=== PATIENT | male | born 1950 | race Caucasian/White ===

== ENCOUNTER 2020-09-06 15:13 | Inpatient (IN) | payer BC, MEDICARE ==
[2020-09-06] VITALS (33 sets, daily range): BP systolic 102–130; BP diastolic 60–75
[~2020-09-06] VITALS: Ht 182.9 cm; Wt 81.2 kg
[~2020-09-06 15:13] MED LIST: AMLO10TA4; ASCO-316; ASPI-518; ATEN50TA; CA C1TAB95; CYAN1LOZ; ERGO400C PO; FOSI10TA4; GARL1CAP12; GINK60TA7; INSULIN; LACT1TAB14; LECI518C; LIRA0.6P; MULT-783; OMEG300C3 PO; RANI-645; SERT-112; TESTOSTERONE PATCH; VITA-290; VITA400C24
[2020-09-06] MEDS ORDERED: LEVETIRACETAM 500 MG in SODIUM CHLORIDE 0.9% 100 ML IV SCH (15:45)
[2020-09-06] MEDS ORDERED: PROPOFOL 10MG/ML 100ML 100 ML IV PRN (16:15)
[2020-09-06] MEDS ORDERED: FENTANYL CITRATE/PF 2,500 MCG in SODIUM CHLORIDE 0.9% 200 ML IV PRN (16:15)
[2020-09-06] MEDS ORDERED: DEXTROSE 50% WATER 50ML SYRINGE IV PRN (16:15)
[2020-09-06] MEDS ORDERED: NICARDIPINE 100 MG in SODIUM CHLORIDE 0.9% 60 ML IV PRN (16:15)
[2020-09-06 16:23] LABS: BG BASE EXCESS 5.6 mmol/L (-2.0-2.0); BG CARBOXYHEMOGLOBIN 0.2 % (0.5-1.5); BG DEOXYHEMOGLOBIN 0.7 % (0.0-5.0); BG FRACTION INSPIRED OXYGEN 100; BG HCO3 ACT 29.2 mmol/L (22.0-26.0); BG METHEMOGLOBIN 0.2 % (0.0-1.5); BG OXYGEN SATURATION 99.3 % (92.0-98.5); BG OXYHEMOGLOBIN 98.9 % (94.0-97.0); BG PCO2 38.9 mmHg (35.0-45.0); BG PH 7.493 (7.350-7.450); BG PO2 555.5 mmHg (75.0-100.0); BG SAMPLE SITE LEFT RADIAL; BG TOTAL HEMOGLOBIN 11.8 g/dL (12.0-18.0); BG VENT MODE VENT - AC
[2020-09-06] MEDS: DEXT 5%/LACTATED RINGERS 1,000 ML IV SCH (16:38)
[2020-09-06] MEDS: BLOOD SUGAR DIAGNOSTIC STRIP TEST SCH ×2 (17:13→20:19)
[2020-09-06] MEDS: INSULIN LISPRO 100 UNITS/ML SUBCUT SCH ×2 (17:16→21:25)
[2020-09-06 18:57] LABS: BASOPHILS % 0.3 % (0.0-2.0); EOSINOPHILS % 0.4 % (0.0-5.0); HEMATOCRIT. 31.3 % (42.0-52.0); LYMPHOCYTES % 16.4 % (20.0-50.0); MEAN CORPUSCULAR HEMOGLOBIN 30.9 pg (28.0-32.0); MEAN CORPUSCULAR VOLUME 87.6 fL (80.0-94.0); MEAN PLATELET VOLUME 7.8 fl (7.4-10.4); NEUTROPHILS % 75.9 % (40.0-76.0); PLATELET 239 x1000/uL (130-400); RED BLOOD CELL COUNT 3.58 mill/uL (4.7-6.1); RED CELL DISTRIBUTION WIDTH 14.9 % (11.6-14.6)
[2020-09-06 19:03] LABS: CHLORIDE 103 mEq/L (98-107)
[2020-09-06] MEDS: LEVETIRACETAM 500MG PREMIX 100 ML IV SCH (20:19)
[2020-09-06] MEDS: IPRATROPIUM/ALBUTEROL 0.5-3(2.5)MG/3ML NEB HHN SCH (20:31)
[2020-09-07] VITALS (90 sets, daily range): BP systolic 93–157; BP diastolic 48–132
[2020-09-07] MEDS: LEVOTHYROXINE SODIUM 50MCG TABLET PO SCH ×2 (05:45→05:58)
[2020-09-07] MEDS: BLOOD SUGAR DIAGNOSTIC STRIP TEST SCH ×4 (05:45→20:16)
[2020-09-07] MEDS: INSULIN LISPRO 100 UNITS/ML SUBCUT SCH ×4 (06:39→21:22)
[2020-09-07] MEDS: IPRATROPIUM/ALBUTEROL 0.5-3(2.5)MG/3ML NEB HHN SCH ×3 (08:53→20:52)
[2020-09-07] MEDS: PANTOPRAZOLE SODIUM 40 MG/VIAL IV SCH (09:13)
[2020-09-07] MEDS: LEVETIRACETAM 500MG PREMIX 100 ML IV SCH ×2 (09:13→20:04)
[2020-09-07] MEDS: AMLODIPINE 5MG TABLET PO SCH (09:14)
[2020-09-07] MEDS: ATORVASTATIN CALCIUM 40MG TABLET PO SCH (09:14)
[2020-09-07] MEDS: SERTRALINE HCL 100MG TABLET PO SCH (09:14)
[2020-09-07] MEDS: DEXT 5%/LACTATED RINGERS 1,000 ML IV SCH (09:27)
[2020-09-07 11:28] LABS: INR 1.1; PROTHROMBIN TIME 11.9 sec (9.6-11.0)
[2020-09-07] MEDS: CEFTRIAXONE 1,000 MG in DEXTROSE 5% WATER 50 ML IV SCH (13:14)
[2020-09-07 19:44] LABS: CLARITY URINE TURBID (CLEAR); COLOR URINE DK YELLOW (YELLOW); KETONES URINE 1+ (NEGATIVE); LEUKOCYTE ESTERASE URINE 3+ (NEGATIVE); NITRITE URINE POSITIVE (NEGATIVE); OCCULT BLOOD URINE 2+ (NEGATIVE); PH URINE 5.5 (4.5-8.0); PROTEIN URINE 1+ (NEGATIVE); SPECIFIC GRAVITY URINE 1.027 (1.005-1.030); UROBILINOGEN URINE 0.2 E.U./dL (0.2-1.0)
[2020-09-07] MEDS: ONDANSETRON HCL 4MG/2ML INJ IV PRN (20:04)
[2020-09-07] MEDS: MORPHINE SULFATE 4 MG/ML CPJ (NOT FOR IM USE) IV PRN (22:59)
[2020-09-08] VITALS (57 sets, daily range): BP systolic 103–165; BP diastolic 55–121
[2020-09-08] MEDS: IPRATROPIUM/ALBUTEROL 0.5-3(2.5)MG/3ML NEB HHN SCH ×4 (01:35→20:05)
[2020-09-08] MEDS: DEXT 5%/LACTATED RINGERS 1,000 ML IV SCH ×2 (03:20→23:59)
[2020-09-08] MEDS: MORPHINE SULFATE 4 MG/ML CPJ (NOT FOR IM USE) IV PRN ×6 (03:20→23:58)
[2020-09-08 03:59] LABS: BASOPHILS % 0.3 % (0.0-2.0); EOSINOPHILS % 0.7 % (0.0-5.0); HEMATOCRIT. 30.9 % (42.0-52.0); HEMOGLOBIN. 10.5 g/dL (14.0-18.0); MEAN CORPUSCULAR HEMOGLOBIN 30.7 pg (28.0-32.0); MEAN CORPUSCULAR VOLUME 90.2 fL (80.0-94.0); MEAN PLATELET VOLUME 7.7 fl (7.4-10.4); MONOCYTES % 7.5 % (2.0-8.0); NEUTROPHILS % 80.5 % (40.0-76.0); PLATELET 209 x1000/uL (130-400); RED BLOOD CELL COUNT 3.42 mill/uL (4.7-6.1); RED CELL DISTRIBUTION WIDTH 14.9 % (11.6-14.6)
[2020-09-08 04:03] LABS: CHLORIDE 106 mEq/L (98-107)
[2020-09-08] MEDS: LEVOTHYROXINE SODIUM 50MCG TABLET PO SCH (05:50)
[2020-09-08] MEDS: BLOOD SUGAR DIAGNOSTIC STRIP TEST SCH ×4 (06:08→21:17)
[2020-09-08] MEDS: INSULIN LISPRO 100 UNITS/ML SUBCUT SCH ×4 (06:11→21:17)
[2020-09-08] MEDS: ATORVASTATIN CALCIUM 40MG TABLET PO SCH (09:00)
[2020-09-08] MEDS: AMLODIPINE 5MG TABLET PO SCH ×2 (09:00→10:03)
[2020-09-08] MEDS: SERTRALINE HCL 100MG TABLET PO SCH ×2 (09:00→10:03)
[2020-09-08] MEDS: PANTOPRAZOLE SODIUM 40 MG/VIAL IV SCH (09:21)
[2020-09-08] MEDS: LEVETIRACETAM 500MG PREMIX 100 ML IV SCH ×2 (09:21→21:15)
[2020-09-08] MEDS: HYDRALAZINE 20MG/ML VIAL IV PRN (14:36)
[2020-09-08] MEDS ORDERED: POTASSIUM CHLORIDE INJ 40 MEQ in DEXT 5% WATER 250 ML IV ONE (17:30)
[2020-09-08] MEDS: MEROPENEM 1,000 MG in SODIUM CHLORIDE 0.9% 100 ML IV SCH ×2 (17:31→22:18)
[2020-09-08] MEDS: ONDANSETRON HCL 4MG/2ML INJ IV PRN (21:15)
[2020-09-08] MEDS ORDERED: DOPAMINE 400MG/250ML PREMIX 250 ML IV ONE (22:48)
[2020-09-09] VITALS (31 sets, daily range): BP systolic 114–169; BP diastolic 61–108
[2020-09-09] MEDS: HYDRALAZINE 20MG/ML VIAL IV PRN ×2 (00:25→06:35)
[2020-09-09] MEDS: IPRATROPIUM/ALBUTEROL 0.5-3(2.5)MG/3ML NEB HHN SCH ×4 (02:06→21:20)
[2020-09-09] MEDS: MORPHINE SULFATE 4 MG/ML CPJ (NOT FOR IM USE) IV PRN ×4 (02:24→13:50)
[2020-09-09] MEDS: BLOOD SUGAR DIAGNOSTIC STRIP TEST SCH ×5 (05:57→21:02)
[2020-09-09] MEDS: MEROPENEM 1,000 MG in SODIUM CHLORIDE 0.9% 100 ML IV SCH ×3 (05:57→21:59)
[2020-09-09] MEDS: LEVOTHYROXINE SODIUM 50MCG TABLET PO SCH (05:57)
[2020-09-09] MEDS: INSULIN LISPRO 100 UNITS/ML SUBCUT SCH ×4 (05:58→21:00)
[2020-09-09] MEDS: ATORVASTATIN CALCIUM 40MG TABLET PO SCH (08:46)
[2020-09-09] MEDS: SERTRALINE HCL 100MG TABLET PO SCH (08:46)
[2020-09-09] MEDS: AMLODIPINE 5MG TABLET PO SCH (08:46)
[2020-09-09] MEDS: PANTOPRAZOLE SODIUM 40 MG/VIAL IV SCH (09:00)
[2020-09-09] MEDS: LEVETIRACETAM 500MG PREMIX 100 ML IV SCH ×3 (09:02→21:03)
[2020-09-09] MEDS: CEFTRIAXONE 1,000 MG in DEXTROSE 5% WATER 50 ML IV SCH (17:17)
[2020-09-09] MEDS: DEXT 5%/LACTATED RINGERS 1,000 ML IV SCH (17:17)
[2020-09-10] VITALS: BP 152/77
[2020-09-10] MEDS: LORAZEPAM 2MG/ML CPJ IV PRN ×2 (00:22→10:11)
[2020-09-10] MEDS: IPRATROPIUM/ALBUTEROL 0.5-3(2.5)MG/3ML NEB HHN SCH ×4 (01:25→21:17)
[2020-09-10] MEDS: DEXT 5%/LACTATED RINGERS 1,000 ML IV SCH ×2 (02:22→19:41)
[2020-09-10 04:00] VITALS: BP 138/89
[2020-09-10] MEDS: MEROPENEM 1,000 MG in SODIUM CHLORIDE 0.9% 100 ML IV SCH ×3 (05:34→21:09)
[2020-09-10] MEDS: BLOOD SUGAR DIAGNOSTIC STRIP TEST SCH ×4 (06:14→20:16)
[2020-09-10] MEDS: INSULIN LISPRO 100 UNITS/ML SUBCUT SCH ×4 (06:16→20:17)
[2020-09-10] MEDS: LEVOTHYROXINE SODIUM 50MCG TABLET PO SCH (06:26)
[2020-09-10 07:32] LABS: VITAMIN B12 SERUM 723 pg/mL (211-911)
[2020-09-10 08:20] VITALS: BP 158/84
[2020-09-10] MEDS: LEVETIRACETAM 500MG PREMIX 100 ML IV SCH ×2 (10:11→20:31)
[2020-09-10] MEDS: SERTRALINE HCL 100MG TABLET PO SCH (10:24)
[2020-09-10] MEDS: PANTOPRAZOLE SODIUM 40 MG/VIAL IV SCH (10:24)
[2020-09-10] MEDS: AMLODIPINE 5MG TABLET PO SCH (10:24)
[2020-09-10] MEDS: ATORVASTATIN CALCIUM 40MG TABLET PO SCH (10:24)
[2020-09-10 12:43] VITALS: BP 146/78
[2020-09-10 15:53] VITALS: BP 115/65
[2020-09-10 20:00] VITALS: BP 122/72
[2020-09-11] VITALS: BP 139/70
[2020-09-11] MEDS: IPRATROPIUM/ALBUTEROL 0.5-3(2.5)MG/3ML NEB HHN SCH ×4 (01:04→21:15)
[2020-09-11 04:00] VITALS: BP 147/83
[2020-09-11] MEDS: MEROPENEM 1,000 MG in SODIUM CHLORIDE 0.9% 100 ML IV SCH ×3 (05:07→21:01)
[2020-09-11] MEDS: BLOOD SUGAR DIAGNOSTIC STRIP TEST SCH ×4 (05:55→21:01)
[2020-09-11] MEDS: LEVOTHYROXINE SODIUM 50MCG TABLET PO SCH (06:10)
[2020-09-11] MEDS: INSULIN LISPRO 100 UNITS/ML SUBCUT SCH ×4 (06:11→21:01)
[2020-09-11 08:00] VITALS: BP 140/73
[2020-09-11] MEDS: ATORVASTATIN CALCIUM 40MG TABLET PO SCH (08:29)
[2020-09-11] MEDS: AMLODIPINE 5MG TABLET PO SCH (08:29)
[2020-09-11] MEDS: SERTRALINE HCL 100MG TABLET PO SCH (08:30)
[2020-09-11] MEDS ORDERED: GADOTERATE MEGLUMINE 5 MMOL/10 ML VIAL IV ONE (11:48)
[2020-09-11 12:00] VITALS: BP 170/63
[2020-09-11] MEDS: DEXT 5%/LACTATED RINGERS 1,000 ML IV SCH (13:12)
[2020-09-11] MEDS: PANTOPRAZOLE SODIUM 40 MG/VIAL IV SCH (13:12)
[2020-09-11] MEDS: LEVETIRACETAM 500MG PREMIX 100 ML IV SCH (13:12)
[2020-09-11 16:00] VITALS: BP 146/66
[2020-09-11 20:00] VITALS: BP 152/85
[2020-09-11] MEDS: LEVETIRACETAM 500MG TABLET PO SCH (21:01)
[2020-09-11] MEDS: FAMOTIDINE 20MG/2ML VIAL IV SCH (21:01)
[2020-09-12] VITALS: BP 139/68
[2020-09-12] MEDS: IPRATROPIUM/ALBUTEROL 0.5-3(2.5)MG/3ML NEB HHN SCH ×2 (02:44→09:00)
[2020-09-12 04:00] VITALS: BP 150/73
[2020-09-12] MEDS: DEXT 5%/LACTATED RINGERS 1,000 ML IV SCH ×2 (04:56→21:45)
[2020-09-12] MEDS: MEROPENEM 1,000 MG in SODIUM CHLORIDE 0.9% 100 ML IV SCH ×3 (05:00→22:09)
[2020-09-12] MEDS: BLOOD SUGAR DIAGNOSTIC STRIP TEST SCH ×4 (06:32→21:00)
[2020-09-12] MEDS: LEVOTHYROXINE SODIUM 50MCG TABLET PO SCH (06:33)
[2020-09-12] MEDS: INSULIN LISPRO 100 UNITS/ML SUBCUT SCH ×4 (06:34→22:09)
[2020-09-12] MEDS: ATORVASTATIN CALCIUM 40MG TABLET PO SCH (11:02)
[2020-09-12] MEDS: SERTRALINE HCL 100MG TABLET PO SCH (11:02)
[2020-09-12] MEDS: AMLODIPINE 5MG TABLET PO SCH (11:02)
[2020-09-12] MEDS: LEVETIRACETAM 500MG TABLET PO SCH ×2 (11:02→22:09)
[2020-09-12] MEDS: FAMOTIDINE 20MG/2ML VIAL IV SCH (11:02)
[2020-09-12 12:00] VITALS: BP 140/79
[2020-09-12] MEDS ORDERED: IPRATROPIUM/ALBUTEROL 0.5-3(2.5)MG/3ML NEB HHN PRN (12:30)
[2020-09-12 16:00] VITALS: BP 138/71
[2020-09-12 20:00] VITALS: BP 135/81
[2020-09-12] MEDS: FAMOTIDINE 20MG TABLET PO SCH (22:08)
[2020-09-13] VITALS: BP 143/73
[2020-09-13 04:00] VITALS: BP 169/71
[2020-09-13] MEDS: INSULIN LISPRO 100 UNITS/ML SUBCUT SCH ×4 (06:13→20:38)
[2020-09-13] MEDS: LEVOTHYROXINE SODIUM 50MCG TABLET PO SCH (06:14)
[2020-09-13] MEDS: BLOOD SUGAR DIAGNOSTIC STRIP TEST SCH ×4 (06:14→21:16)
[2020-09-13] MEDS: MEROPENEM 1,000 MG in SODIUM CHLORIDE 0.9% 100 ML IV SCH ×2 (06:14→13:27)
[2020-09-13 08:00] VITALS: BP 158/63
[2020-09-13] MEDS: FAMOTIDINE 20MG TABLET PO SCH ×2 (10:07→20:37)
[2020-09-13] MEDS: LEVETIRACETAM 500MG TABLET PO SCH ×2 (10:07→20:37)
[2020-09-13] MEDS: AMLODIPINE 5MG TABLET PO SCH (10:07)
[2020-09-13] MEDS: ATORVASTATIN CALCIUM 40MG TABLET PO SCH (10:07)
[2020-09-13] MEDS: SERTRALINE HCL 100MG TABLET PO SCH (10:08)
[2020-09-13 12:00] VITALS: BP 141/81
[2020-09-13] MEDS: DEXT 5%/LACTATED RINGERS 1,000 ML IV SCH (13:28)
[2020-09-13 16:00] VITALS: BP 117/69
[2020-09-13 20:00] VITALS: BP 121/58
[2020-09-14] VITALS: BP 136/70
[2020-09-14 04:00] VITALS: BP 136/76
[2020-09-14] MEDS: BLOOD SUGAR DIAGNOSTIC STRIP TEST SCH ×4 (05:29→20:26)
[2020-09-14] MEDS: LEVOTHYROXINE SODIUM 50MCG TABLET PO SCH (06:10)
[2020-09-14] MEDS: DEXT 5%/LACTATED RINGERS 1,000 ML IV SCH (06:11)
[2020-09-14] MEDS: INSULIN LISPRO 100 UNITS/ML SUBCUT SCH ×4 (06:12→20:26)
[2020-09-14 08:00] VITALS: BP 130/80
[2020-09-14] MEDS: SERTRALINE HCL 100MG TABLET PO SCH (09:19)
[2020-09-14] MEDS: ATORVASTATIN CALCIUM 40MG TABLET PO SCH (09:20)
[2020-09-14] MEDS: FAMOTIDINE 20MG TABLET PO SCH ×2 (09:20→20:24)
[2020-09-14] MEDS: AMLODIPINE 5MG TABLET PO SCH (09:20)
[2020-09-14] MEDS: LEVETIRACETAM 500MG TABLET PO SCH ×2 (09:20→20:24)
[2020-09-14 12:00] VITALS: BP 122/65
[2020-09-14 16:00] VITALS: BP 132/59
[2020-09-14 20:00] VITALS: BP 124/64
[2020-09-14] MEDS: INSULIN GLARGINE UD 100 UNITS/ML SYR SUBCUT SCH (21:04)
[2020-09-15] MEDS: DEXT 5%/LACTATED RINGERS 1,000 ML IV SCH ×2 (01:23→17:30)
[2020-09-15 04:00] VITALS: BP 155/71
[2020-09-15] MEDS ORDERED: LORAZEPAM 2MG/ML CPJ IV PRN (06:00)
[2020-09-15] MEDS: LEVOTHYROXINE SODIUM 50MCG TABLET PO SCH (06:14)
[2020-09-15] MEDS: INSULIN LISPRO 100 UNITS/ML SUBCUT SCH ×4 (06:16→21:22)
[2020-09-15] MEDS: BLOOD SUGAR DIAGNOSTIC STRIP TEST SCH ×4 (06:16→21:32)
[2020-09-15 08:00] VITALS: BP 138/83
[2020-09-15] MEDS: SERTRALINE HCL 100MG TABLET PO SCH (09:10)
[2020-09-15] MEDS: LEVETIRACETAM 500MG TABLET PO SCH ×2 (09:10→21:20)
[2020-09-15] MEDS: FAMOTIDINE 20MG TABLET PO SCH ×2 (09:10→21:20)
[2020-09-15] MEDS: AMLODIPINE 5MG TABLET PO SCH (09:11)
[2020-09-15] MEDS: ATORVASTATIN CALCIUM 40MG TABLET PO SCH (09:11)
[2020-09-15 09:56] LABS: BASOPHILS % 0.3 % (0.0-2.0); EOSINOPHILS % 2.9 % (0.0-5.0); HEMATOCRIT. 31.7 % (42.0-52.0); HEMOGLOBIN. 11.2 g/dL (14.0-18.0); LYMPHOCYTES % 18.8 % (20.0-50.0); MEAN CORPUSCULAR HEMOGLOBIN 31.4 pg (28.0-32.0); MEAN CORPUSCULAR VOLUME 88.5 fL (80.0-94.0); MEAN PLATELET VOLUME 7.6 fl (7.4-10.4); MONOCYTES % 9.6 % (2.0-8.0); NEUTROPHILS % 68.4 % (40.0-76.0); PLATELET 275 x1000/uL (130-400); RED BLOOD CELL COUNT 3.58 mill/uL (4.7-6.1); RED CELL DISTRIBUTION WIDTH 15.3 % (11.6-14.6)
[2020-09-15 10:11] LABS: CHLORIDE 100 mEq/L (98-107)
[2020-09-15 10:39] LABS: CLARITY URINE CLEAR (CLEAR); COLOR URINE YELLOW (YELLOW); KETONES URINE NEGATIVE (NEGATIVE); LEUKOCYTE ESTERASE URINE 1+ (NEGATIVE); NITRITE URINE NEGATIVE (NEGATIVE); OCCULT BLOOD URINE NEGATIVE (NEGATIVE); PROTEIN URINE NEGATIVE (NEGATIVE); SPECIFIC GRAVITY URINE 1.008 (1.005-1.030); UROBILINOGEN URINE 0.2 E.U./dL (0.2-1.0)
[2020-09-15 12:00] VITALS: BP 145/81
[2020-09-15] MEDS ORDERED: POTASSIUM CHLORIDE 20MEQ/PACKET PO NR (12:30)
[2020-09-15 16:00] VITALS: BP 158/85
[2020-09-15 20:00] VITALS: BP 164/86
[2020-09-15] MEDS: INSULIN GLARGINE UD 100 UNITS/ML SYR SUBCUT SCH (21:21)
[2020-09-16] VITALS: BP 132/70
[2020-09-16 04:00] VITALS: BP 125/59
[2020-09-16] MEDS: BLOOD SUGAR DIAGNOSTIC STRIP TEST SCH ×4 (05:47→21:00)
[2020-09-16] MEDS: LEVOTHYROXINE SODIUM 50MCG TABLET PO SCH (06:07)
[2020-09-16] MEDS: INSULIN LISPRO 100 UNITS/ML SUBCUT SCH ×4 (06:08→21:00)
[2020-09-16 08:00] VITALS: BP 135/72
[2020-09-16] MEDS: FAMOTIDINE 20MG TABLET PO SCH ×2 (09:27→21:04)
[2020-09-16] MEDS: SERTRALINE HCL 100MG TABLET PO SCH (09:27)
[2020-09-16] MEDS: LEVETIRACETAM 500MG TABLET PO SCH ×2 (09:27→21:04)
[2020-09-16] MEDS: ATORVASTATIN CALCIUM 40MG TABLET PO SCH (09:29)
[2020-09-16] MEDS: AMLODIPINE 5MG TABLET PO SCH (09:29)
[2020-09-16 12:00] VITALS: BP 132/70
[2020-09-16] MEDS: DEXT 5%/LACTATED RINGERS 1,000 ML IV SCH (13:41)
[2020-09-16 16:00] VITALS: BP 127/67
[2020-09-16 20:00] VITALS: BP 130/71
[2020-09-16] MEDS: INSULIN GLARGINE UD 100 UNITS/ML SYR SUBCUT SCH (21:05)
[2020-09-17 00:05] VITALS: BP 141/76
[2020-09-17] MEDS: DEXT 5%/LACTATED RINGERS 1,000 ML IV SCH ×2 (00:51→18:30)
[2020-09-17 04:00] VITALS: BP 139/66
[2020-09-17] MEDS: LEVOTHYROXINE SODIUM 50MCG TABLET PO SCH (05:52)
[2020-09-17] MEDS: BLOOD SUGAR DIAGNOSTIC STRIP TEST SCH ×4 (05:56→20:53)
[2020-09-17] MEDS: INSULIN LISPRO 100 UNITS/ML SUBCUT SCH ×4 (06:00→20:58)
[2020-09-17] MEDS: LEVETIRACETAM 500MG TABLET PO SCH ×2 (09:33→20:54)
[2020-09-17] MEDS: ATORVASTATIN CALCIUM 40MG TABLET PO SCH (09:33)
[2020-09-17] MEDS: FAMOTIDINE 20MG TABLET PO SCH ×2 (09:33→20:54)
[2020-09-17] MEDS: AMLODIPINE 5MG TABLET PO SCH (09:33)
[2020-09-17] MEDS: SERTRALINE HCL 100MG TABLET PO SCH (09:33)
[2020-09-17 12:00] VITALS: BP 131/65
[2020-09-17 16:00] VITALS: BP 143/65
[2020-09-17 20:00] VITALS: BP 121/57
[2020-09-17] MEDS: INSULIN GLARGINE UD 100 UNITS/ML SYR SUBCUT SCH (20:59)
[2020-09-18] VITALS: BP 134/64
[2020-09-18 04:00] VITALS: BP 127/63
[2020-09-18] MEDS: LEVOTHYROXINE SODIUM 50MCG TABLET PO SCH (05:58)
[2020-09-18] MEDS: BLOOD SUGAR DIAGNOSTIC STRIP TEST SCH ×4 (05:58→20:57)
[2020-09-18] MEDS: INSULIN LISPRO 100 UNITS/ML SUBCUT SCH ×4 (06:02→20:25)
[2020-09-18 08:00] VITALS: BP 131/54
[2020-09-18] MEDS: ATORVASTATIN CALCIUM 40MG TABLET PO SCH (09:14)
[2020-09-18] MEDS: FAMOTIDINE 20MG TABLET PO SCH ×2 (09:14→20:24)
[2020-09-18] MEDS: SERTRALINE HCL 100MG TABLET PO SCH (09:14)
[2020-09-18] MEDS: AMLODIPINE 5MG TABLET PO SCH (09:14)
[2020-09-18] MEDS: LEVETIRACETAM 500MG TABLET PO SCH ×2 (09:14→20:24)
[2020-09-18] MEDS: DEXT 5%/LACTATED RINGERS 1,000 ML IV SCH (11:05)
[2020-09-18 12:00] VITALS: BP 150/72
[2020-09-18 16:00] VITALS: BP 104/58
[2020-09-18 20:37] VITALS: BP 121/72
[2020-09-18] MEDS: INSULIN GLARGINE UD 100 UNITS/ML SYR SUBCUT SCH (21:28)
[2020-09-19] VITALS: BP 143/80
[2020-09-19] MEDS: DEXT 5%/LACTATED RINGERS 1,000 ML IV SCH ×2 (03:45→17:27)
[2020-09-19 04:00] VITALS: BP 132/90
[2020-09-19] MEDS: LEVOTHYROXINE SODIUM 50MCG TABLET PO SCH (06:00)
[2020-09-19] MEDS: BLOOD SUGAR DIAGNOSTIC STRIP TEST SCH ×4 (06:00→21:17)
[2020-09-19] MEDS: INSULIN LISPRO 100 UNITS/ML SUBCUT SCH ×4 (06:02→21:17)
[2020-09-19 06:36] LABS: BASOPHILS % 0.4 % (0.0-2.0); EOSINOPHILS % 3.4 % (0.0-5.0); HEMATOCRIT. 33.2 % (42.0-52.0); HEMOGLOBIN. 11.4 g/dL (14.0-18.0); LYMPHOCYTES % 28.4 % (20.0-50.0); MEAN CORPUSCULAR HEMOGLOBIN 30.8 pg (28.0-32.0); MEAN CORPUSCULAR VOLUME 90.2 fL (80.0-94.0); MEAN PLATELET VOLUME 7.5 fl (7.4-10.4); MONOCYTES % 7.9 % (2.0-8.0); NEUTROPHILS % 59.9 % (40.0-76.0); PLATELET 283 x1000/uL (130-400); RED BLOOD CELL COUNT 3.68 mill/uL (4.7-6.1); RED CELL DISTRIBUTION WIDTH 15.9 % (11.6-14.6)
[2020-09-19 07:05] LABS: CHLORIDE 101 mEq/L (98-107)
[2020-09-19 08:00] VITALS: BP 145/81
[2020-09-19] MEDS: AMLODIPINE 5MG TABLET PO SCH (09:07)
[2020-09-19] MEDS: ATORVASTATIN CALCIUM 40MG TABLET PO SCH (09:07)
[2020-09-19] MEDS: FAMOTIDINE 20MG TABLET PO SCH ×2 (09:07→21:14)
[2020-09-19] MEDS: SERTRALINE HCL 100MG TABLET PO SCH (09:08)
[2020-09-19] MEDS: LEVETIRACETAM 500MG TABLET PO SCH ×2 (09:08→21:14)
[2020-09-19 12:00] VITALS: BP 131/61
[2020-09-19 16:00] VITALS: BP 112/63
[2020-09-19 20:00] VITALS: BP 109/53
[2020-09-19] MEDS: INSULIN GLARGINE UD 100 UNITS/ML SYR SUBCUT SCH (22:19)
[2020-09-20] VITALS: BP 132/90
[2020-09-20 04:00] VITALS: BP 140/72
[2020-09-20] MEDS: BLOOD SUGAR DIAGNOSTIC STRIP TEST SCH ×4 (06:42→22:11)
[2020-09-20] MEDS: LEVOTHYROXINE SODIUM 50MCG TABLET PO SCH (06:48)
[2020-09-20] MEDS: INSULIN LISPRO 100 UNITS/ML SUBCUT SCH ×4 (06:49→22:26)
[2020-09-20 08:00] VITALS: BP 147/76
[2020-09-20] MEDS: LEVETIRACETAM 500MG TABLET PO SCH ×2 (09:26→22:20)
[2020-09-20] MEDS: FAMOTIDINE 20MG TABLET PO SCH ×2 (09:26→22:20)
[2020-09-20] MEDS: ATORVASTATIN CALCIUM 40MG TABLET PO SCH (09:26)
[2020-09-20] MEDS: SERTRALINE HCL 100MG TABLET PO SCH (09:26)
[2020-09-20] MEDS: AMLODIPINE 5MG TABLET PO SCH (09:26)
[2020-09-20 12:00] VITALS: BP 126/75
[2020-09-20] MEDS: DEXT 5%/LACTATED RINGERS 1,000 ML IV SCH (13:23)
[2020-09-20 16:00] VITALS: BP 122/68
[2020-09-20 20:00] VITALS: BP 133/65
[2020-09-20] MEDS: INSULIN GLARGINE UD 100 UNITS/ML SYR SUBCUT SCH (22:26)
[2020-09-21] VITALS: BP 122/81
[2020-09-21 04:00] VITALS: BP 174/66
[2020-09-21] MEDS: ONDANSETRON HCL 4MG/2ML INJ IV PRN (04:07)
[2020-09-21 05:00] VITALS: BP 158/82
[2020-09-21] MEDS: BLOOD SUGAR DIAGNOSTIC STRIP TEST SCH ×2 (05:57→12:10)
[2020-09-21] MEDS: LEVOTHYROXINE SODIUM 50MCG TABLET PO SCH (06:47)
[2020-09-21] MEDS: INSULIN LISPRO 100 UNITS/ML SUBCUT SCH ×2 (06:59→13:35)
[2020-09-21] MEDS: DEXT 5%/LACTATED RINGERS 1,000 ML IV SCH (07:00)
[2020-09-21 08:00] VITALS: BP 125/58
[2020-09-21] MEDS: ATORVASTATIN CALCIUM 40MG TABLET PO SCH (09:37)
[2020-09-21] MEDS: LEVETIRACETAM 500MG TABLET PO SCH (09:37)
[2020-09-21] MEDS: AMLODIPINE 5MG TABLET PO SCH (09:37)
[2020-09-21] MEDS: SERTRALINE HCL 100MG TABLET PO SCH (09:38)
[2020-09-21] MEDS: FAMOTIDINE 20MG TABLET PO SCH (09:38)
[2020-09-21 12:00] VITALS: BP 140/66
[2020-09-21 12:40] VITALS: BP 125/58
[2020-09-21] MEDS ORDERED: INSULIN GLARGINE UD 100 UNITS/ML SYR SUBCUT SCH (22:00)
== END 2020-09-21 15:03 | DRG 871 ==
LOC: MICUSO 15:13 → 8WST 09-09 16:11
PROVIDERS: ADMIT Hospitalist; ATTEND Hospitalist
PROC: 5A1935Z Respiratory Ventilation, Less than 24 Consecutive Hours (ICD-10-PCS; 2020-09-06)
PROC: 0BH17EZ Insertion of Endotracheal Airway into Trachea, Via Natural or Artificial Opening (ICD-10-PCS; 2020-09-06)
PROC: 4A10X4Z Monitoring of Central Nervous Electrical Activity, External Approach (ICD-10-PCS; principal; 2020-09-08)
DX: A41.51 Sepsis due to Escherichia coli [E. coli] (principal); J96.00 Acute respiratory failure, unspecified whether with hypoxia or hypercapnia; I62.00 Nontraumatic subdural hemorrhage, unspecified; G93.40 Encephalopathy, unspecified; N39.0 Urinary tract infection, site not specified; Z16.12 Extended spectrum beta lactamase (ESBL) resistance; E66.9 Obesity, unspecified; D64.9 Anemia, unspecified; E11.40 Type 2 diabetes mellitus with diabetic neuropathy, unspecified; F41.9 Anxiety disorder, unspecified; Z20.822 Contact with and (suspected) exposure to COVID-19; F32.9 Major depressive disorder, single episode, unspecified; I10 Essential (primary) hypertension; Z87.891 Personal history of nicotine dependence; Z79.899 Other long term (current) drug therapy
CPT/HCPCS: 36415; 36600; 70553; 71045; 80048; 80053; 80076; 81003; 82140; 82375; 82607; 82805; 82962; 83036; 83735; 84443; 84478; 85025; 85651; 87070; 87077; 87186; 87426; 92610; 94002; 94003; 94640; 95816; 97110; 97162; 97166; 97530; 97535; A6261; A9577; C1893; C9113; J0360; J0696; J1265; J1815; J1953; J2060; J2185; J2270; J2405; J2704; J3010; J3490; J7040; J7050; J7060; J7121